=== PATIENT | female | born 1990 | race Caucasian/White ===

== ENCOUNTER 2021-02-25 08:38 | Inpatient (IN) | payer BC ==
[~2021-02-25] VITALS: Ht 154.9 cm; Wt 77.6 kg
[2021-02-25] MEDS ORDERED: LR 1,000 ML IV SCH ×2 (10:15→20:15)
[2021-02-25] MEDS ORDERED: DINOPROSTONE 10 MG SUPP VG ONE (10:15)
[2021-02-25] MEDS ORDERED: NALBUPHINE HCL 10 MG/ML AMP IM PRN (10:15)
[2021-02-25] MEDS ORDERED: OXYTOCIN/0.9 % SODIUM CHLORIDE 1,000 ML IV SCH (10:15)
[2021-02-25 10:39] LABS: BASOPHILS % (AUTO) 0.4 % (0.0-2.0); EOSINOPHILS # (AUTO) 0.1 K/uL (0.0-0.4); EOSINOPHILS % (AUTO) 0.6 % (0.0-4.0); HEMATOCRIT 39.1 % (36-48); HEMOGLOBIN 13.2 g/dL (12.0-16.0); LYMPHOCYTES # (AUTO) 1.6 K/uL (1.0-5.5); LYMPHOCYTES % (AUTO) 15.9 % (20.5-51.5); MEAN CORPUSCULAR HEMOGLOBIN 30 pg (27-31); MEAN CORPUSCULAR HGB CONC 34 % (32-36); MEAN CORPUSCULAR VOLUME 89 fL (79.0-98.0); MONOCYTES # (AUTO) 0.4 K/uL (0.0-1.0); MONOCYTES % (AUTO) 3.9 % (1.7-9.3); NEUTROPHILS % (AUTO) 79.2 % (40.0-70.0); PLATELET COUNT (AUTO) 171 K/uL (130-430); RED BLOOD CELL COUNT(AUTO) 4.41 MIL/uL (4.2-6.2); RED CELL DISTRIBUTION WIDTH 14.9 % (9.0-15.0); WHITE BLOOD COUNT (AUTO) 10.1 K/uL (4.8-10.8)
[2021-02-25] MEDS: NALBUPHINE HCL 10 MG/ML AMP IVP PRN ×2 (11:40→14:16)
[2021-02-25 13:33] VITALS: BP_SYST 115
[2021-02-25] MEDS ORDERED: TERBUTALINE SULFATE 1 MG/ML VIAL ONE (17:45)
[2021-02-25] MEDS ORDERED: NS IRRIG SOLN 1000 ML IR ONE (19:15)
[2021-02-25] MEDS ORDERED: MORPHINE SULFATE 10MG/10ML PF AMP EP ONE (19:15)
[2021-02-25] MEDS ORDERED: BUPIVACAINE /PF 0.75% 10 ML VIAL INJ ONE (19:15)
[2021-02-25] MEDS ORDERED: CEFAZOLIN 2 GM IVPB PREMIX 50 ML IV ONE ×3 (19:15→19:30)
[2021-02-25] MEDS ORDERED: LR 1,000 ML IV.SOLN IV ONE (19:15)
[2021-02-25] MEDS ORDERED: MORPHINE SULFATE 10MG/10ML PF AMP SP SCH (20:00)
[2021-02-25] MEDS ORDERED: fentaNYL CITRATE/PF 100 MCG/2 ML AMP IVP PRN ×2 (20:00)
[2021-02-25] MEDS ORDERED: NALBUPHINE HCL 10 MG/ML AMP IVP PRN (20:00)
[2021-02-25] MEDS ORDERED: DIPHENHYDRAMINE INJ 50 MG/ML VIAL IVP PRN (20:00)
[2021-02-25] MEDS ORDERED: ONDANSETRON HCL 4 MG/2 ML VIAL IVP PRN (20:00)
[2021-02-25] MEDS ORDERED: NALOXONE HCL 0.4 MG/ML AMP (NARCAN) IVP PRN ×3 (20:00→20:15)
[2021-02-25] MEDS ORDERED: KETOROLAC TROMETHAMINE 60 MG/2 ML VIAL IM PRN (20:00)
[2021-02-25 20:15] VITALS: BP_SYST 119
[2021-02-25] MEDS ORDERED: RHO(D) IMMUNE GLOBULIN/MALTOSE 1500 UNITS/1.3 ML (WINHRO) IM PRN (20:15)
[2021-02-25] MEDS ORDERED: MEASLES,MUMPS&RUBELLA VACC/PF 12500 UNIT/0.5 ML VIAL SUBQ PRN (20:15)
[2021-02-25] MEDS ORDERED: LANOLIN 7 GM OINT. TP PRN (20:15)
[2021-02-25] MEDS ORDERED: TEMAZEPAM 15 MG CAPSULE PO PRN (20:15)
[2021-02-25] MEDS ORDERED: BISACODYL 10 MG/SUPPOSITORY RC PRN (20:15)
[2021-02-25] MEDS ORDERED: ANUSOL 1 EA SUPP.RECT (PREPARATION H) RC PRN (20:15)
[2021-02-25] MEDS ORDERED: SENNOSIDES/DOCUSATE SODIUM 1 TAB TABLET(SENOKOT-S) PO PRN (20:15)
[2021-02-25] MEDS ORDERED: DIPH-TET-PERTUS Vaccine 0.5 ML VIAL (ADACEL) I.M. PRN (20:15)
[2021-02-26] MEDS ORDERED: CEFAZOLIN 1 GM IVPB PREMIX 50 ML IV SCH ×2 (01:30)
[2021-02-26] MEDS: CEFAZOLIN 1 GM IVPB PREMIX 50 ML IV SCH ×2 (01:31→12:07)
[2021-02-26] MEDS: OXYTOCIN/0.9 % SODIUM CHLORIDE 1,000 ML IV SCH ×2 (01:32→08:00)
[2021-02-26 08:22] LABS: BASOPHILS % (AUTO) 0.4 % (0.0-2.0); EOSINOPHILS % (AUTO) 0.3 % (0.0-4.0); HEMATOCRIT 31.5 % (36-48); HEMOGLOBIN 10.7 g/dL (12.0-16.0); LYMPHOCYTES # (AUTO) 1.8 K/uL (1.0-5.5); LYMPHOCYTES % (AUTO) 16.8 % (20.5-51.5); MEAN CORPUSCULAR HEMOGLOBIN 30 pg (27-31); MEAN CORPUSCULAR HGB CONC 34 % (32-36); MEAN CORPUSCULAR VOLUME 90 fL (79.0-98.0); MONOCYTES # (AUTO) 0.4 K/uL (0.0-1.0); MONOCYTES % (AUTO) 4.1 % (1.7-9.3); NEUTROPHILS # (AUTO) 8.4 K/uL (1.8-7.7); NEUTROPHILS % (AUTO) 78.4 % (40.0-70.0); PLATELET COUNT (AUTO) 152 K/uL (130-430); RED BLOOD CELL COUNT(AUTO) 3.52 MIL/uL (4.2-6.2); RED CELL DISTRIBUTION WIDTH 14.6 % (9.0-15.0); WHITE BLOOD COUNT (AUTO) 10.7 K/uL (4.8-10.8)
[2021-02-26] MEDS: SIMETHICONE 80 MG TAB.CHEW PO PRN ×2 (09:51→17:06)
[2021-02-26] MEDS: DOCUSATE SODIUM 100 MG CAPSULE PO PRN (09:52)
[2021-02-26] MEDS: KETOROLAC TROMETHAMINE 30 MG VIAL IVP SCH ×2 (12:00→12:07)
[2021-02-26] MEDS ORDERED: DINOPROSTONE 10 MG SUPP VG ONE (14:24)
[2021-02-26] MEDS: OXYCODONE/ACETAMINOPHEN 5-325 TABLET PO PRN (17:06)
[2021-02-27] MEDS: SIMETHICONE 80 MG TAB.CHEW PO PRN ×3 (00:06→20:40)
[2021-02-27] MEDS: KETOROLAC TROMETHAMINE 30 MG VIAL IVP SCH (00:06)
[2021-02-27] MEDS: OXYCODONE/ACETAMINOPHEN 5-325 TABLET PO PRN ×2 (03:38→14:36)
[2021-02-27] MEDS: IBUPROFEN 600 MG TABLET PO SCH ×4 (06:13→23:39)
[2021-02-27] MEDS: DOCUSATE SODIUM 100 MG CAPSULE PO PRN ×2 (09:10→20:40)
[2021-02-27] MEDS: OXYCODONE/ACETAMINOPHEN *10*mg/325 mg TABLET PO PRN ×2 (09:11→20:40)
[2021-02-28] MEDS: OXYCODONE/ACETAMINOPHEN 5-325 TABLET PO PRN (00:34)
[2021-02-28] MEDS: IBUPROFEN 600 MG TABLET PO SCH ×2 (05:36→12:12)
[2021-02-28] MEDS: DOCUSATE SODIUM 100 MG CAPSULE PO PRN (08:56)
[2021-02-28] MEDS: HYDROcodone/ACETAMIN 5-325 MG TAB (NORCO/ VICODIN) PO PRN ×2 (08:57→16:30)
[2021-02-28 20:06] LABS: FTA-Ab (T PALLIDUM) Non Reactive (Non Reactive)
== END 2021-02-28 17:12 | disposition home or self-care (01) | DRG 788 ==
LOC: SPU 08:38
PROVIDERS: ADMIT Specialist; ATTEND Specialist
PROC: 10D00Z1 Extraction of Products of Conception, Low, Open Approach (ICD-10-PCS; principal; 2021-02-25 19:15)
DX: O77.0 Labor and delivery complicated by meconium in amniotic fluid (principal); O76 Abnormality in fetal heart rate and rhythm complicating labor and delivery; O48.0 Post-term pregnancy; Z20.822 Contact with and (suspected) exposure to COVID-19; O62.2 Other uterine inertia; Z37.0 Single live birth; Z86.32 Personal history of gestational diabetes; Z3A.42 42 weeks gestation of pregnancy
CPT/HCPCS: 36415; 85025; 86592; 86780; 86886; 86900; 86901; J0690; J1885; J2274; J2300; J2590; J3105; J3490; J7120

== ENCOUNTER 2021-04-30 10:43 | Emergency (ER) | payer BC ==
[~2021-04-30] VITALS: Ht 154.9 cm; Wt 64.4 kg
[2021-04-30 10:43] VITALS: BP_SYST 118
--- NOTE | 2021-04-30 10:43 | NUR ---
BROUGHT BACK TO BED #7 VIA WHEELCHAIR, PLACED IN BED #7, TRIAGED, REPORT GIVEN TO DAY
--- NOTE | 2021-04-30 10:45 | NUR ---
PT BIB FROM HOME, STATES SHE DROPPED HER PHONE ONTO A GLASS JAR IN THE BATHROOM. THE GLASS THEN CUT THE TOP OF HER RIGHT FOOT. LAC IS NOT ACTIVELY BLEEDING UPON ARRIVAL, CLEAN EDGES. PT REPORTS 6/10 PAIN BUT STATES SHE DOES NOT WANT ANY MEDICATION FOR THE PAIN. PT IS AAOX4, V/S STABLE UPON ARRIVAL
--- NOTE | 2021-04-30 10:50 | NUR ---
ER DR. PIERCE AT THE BEDSIDE EXAMINING PT
[2021-04-30] MEDS ORDERED: DIPH-TET-PERTUS Vaccine 0.5 ML VIAL (ADACEL) I.M. ONE (11:00)
[2021-04-30] MEDS ORDERED: LIDOCAINE 1%, 20 ML MDV 20 ML ONE (11:05)
--- NOTE | 2021-04-30 11:05 | NUR ---
PT REPORTS WANTING PAIN MEDICATION, DR. PIERCE MADE AWARE
[2021-04-30] MEDS ORDERED: ACETAMINOPHEN 500 MG TABLET PO ONE (11:15)
--- NOTE | 2021-04-30 11:22 | NUR ---
PORTABLE X-RAY AT THE BEDSIDE
[2021-04-30] MEDS ORDERED: BACITRACIN 1 GM OINT TP ONE ×3 (12:39→12:45)
[2021-04-30 13:06] VITALS: BP_SYST 118
--- NOTE | 2021-04-30 13:06 | NUR ---
Patient given written and verbal discharge instructions and verbalizes understanding. ER MD discussed with patient the results and treatment provided. Patient in stable condition. ID arm band removed. NO RX given. Patient educated on pain management and to follow up with PMD. Pain Scale 0/10. Opportunity for questions provided and answered. Medication side effect fact sheet provided.
== END 2021-04-30 13:06 | disposition home or self-care (01) ==
LOC: SED 10:43
DX: S91.311A Laceration without foreign body, right foot, initial encounter (principal); S90.31XA Contusion of right foot, initial encounter; W25.XXXA Contact with sharp glass, initial encounter; Y93.89 Activity, other specified; Y92.89 Other specified places as the place of occurrence of the external cause; Y99.8 Other external cause status
CPT/HCPCS: 73630; 90471; 90715; 99283; J2001

== ENCOUNTER 2021-05-02 12:20 | Emergency (ER) | payer BC ==
[~2021-05-02] VITALS: Ht 154.9 cm; Wt 64.0 kg
[2021-05-02 12:32] VITALS: BP_SYST 121
[2021-05-02 13:50] VITALS: BP_SYST 121
== END 2021-05-02 13:46 | disposition home or self-care (01) ==
LOC: SED 12:20
DX: S91.311D Laceration without foreign body, right foot, subsequent encounter (principal); Z48.00 Encounter for change or removal of nonsurgical wound dressing; W45.8XXD Other foreign body or object entering through skin, subsequent encounter
CPT/HCPCS: 99281

== ENCOUNTER 2021-05-07 12:37 | Emergency (ER) | payer BC ==
[~2021-05-07] VITALS: Ht 154.9 cm; Wt 63.5 kg
[2021-05-07 13:12] VITALS: BP_SYST 119
[2021-05-07 13:43] VITALS: BP_SYST 119
== END 2021-05-07 13:43 | disposition home or self-care (01) ==
LOC: SED 12:37
DX: S91.311D Laceration without foreign body, right foot, subsequent encounter (principal); Z48.00 Encounter for change or removal of nonsurgical wound dressing; W45.8XXD Other foreign body or object entering through skin, subsequent encounter
CPT/HCPCS: 99281

== ENCOUNTER 2021-05-10 14:57 | Emergency (ER) | payer BC ==
[~2021-05-10] VITALS: Ht 154.9 cm; Wt 63.5 kg
--- NOTE | 2021-05-10 15:30 | NUR ---
Patient to ER bed H1 to gown for evaluation. Side rails up. Report given to TIGIST PATTON.
[2021-05-10 15:32] VITALS: BP_SYST 110
--- NOTE | 2021-05-10 15:40 | NUR ---
ER at bedside examining patient.
--- NOTE | 2021-05-10 15:55 | NUR ---
Pt. came in for suture removal of sutures on right foot
--- NOTE | 2021-05-10 15:55 | NUR ---
6 SUTURES REMOVED AND STERI STRIPS APPLIED PT. TOLERATED WELL
--- NOTE | 2021-05-10 16:00 | NUR ---
Patient given written and verbal discharge instructions and verbalizes understanding. Dr. Vargas discussed with patient the results and treatment provided. Patient in stable condition. ID arm band removed. Patient educated on pain management and to follow up with PMD. Pain Scale 0. Opportunity for questions provided and answered. Medication side effect fact sheet provided.
[2021-05-10 16:13] VITALS: BP_SYST 110
== END 2021-05-10 16:13 | disposition home or self-care (01) ==
LOC: SED 14:57
DX: S91.311D Laceration without foreign body, right foot, subsequent encounter (principal); Z48.02 Encounter for removal of sutures; W45.8XXD Other foreign body or object entering through skin, subsequent encounter
CPT/HCPCS: 99282

== ENCOUNTER 2023-03-20 00:05 | Observation (INO) | payer BC, OTHER ==
[~2023-03-20] VITALS: Ht 157.5 cm; Wt 80.7 kg
[2023-03-20] MEDS ORDERED: LR 1,000 ML IV SCH (01:15)
[2023-03-20] MEDS ORDERED: CEFAZOLIN 2 GM IVPB PREMIX 50 ML IV ONE (01:15)
== END 2023-03-20 02:25 | disposition left against medical advice (07) ==
LOC: SPU 00:05 → INTOOBSV 00:50 → OBSVTOIN 00:50
PROVIDERS: ADMIT Specialist; ATTEND Specialist
DX: O62.9 Abnormality of forces of labor, unspecified (principal); Z3A.00 Weeks of gestation of pregnancy not specified; Z53.21 Procedure and treatment not carried out due to patient leaving prior to being seen by health care provider
CPT/HCPCS: J7120; G0378

== ENCOUNTER 2023-03-20 12:12 | Inpatient (IN) | payer BC, OTHER ==
[~2023-03-20] VITALS: Ht 154.9 cm; Wt 80.7 kg
[2023-03-20 12:40] VITALS: BP_SYST 131
[2023-03-20] MEDS ORDERED: CEFAZOLIN 2 GM IVPB PREMIX 50 ML IV ONE (12:45)
[2023-03-20] MEDS ORDERED: LR 1,000 ML IV ONE (12:45)
[2023-03-20 12:50] VITALS: BP_SYST 131
[2023-03-20 13:16] LABS: BILIRUBIN,URINE NEGATIVE (NEGATIVE); BLOOD, URINE NEGATIVE (NEGATIVE); COLOR,URINE YELLOW (YELLOW); GLUCOSE,URINE NEGATIVE (NEGATIVE); KETONES,URINE NEGATIVE (NEGATIVE); LEUKOCYTE ESTERASE ,URINE NEGATIVE (NEGATIVE); NITRITE, URINE NEGATIVE (NEGATIVE); PH,URINE 6.5 (5.0-8.0); PROTEIN URINE NEGATIVE (NEGATIVE)
[2023-03-20 13:20] LABS: EOSINOPHILS % (AUTO) 0.1 % (0.0-4.0); MONOCYTES % (AUTO) 2.3 % (1.7-9.3); RED CELL DISTRIBUTION WIDTH 14.1 % (9.0-15.0)
[2023-03-20 13:25] LABS: CLARITY/URINE SLIGHTLY HAZY (CLEAR)
[2023-03-20 13:58] LABS: BASOPHILS % (AUTO) 0.2 % (0.0-2.0); HEMATOCRIT 38.4 % (36-48); HEMOGLOBIN 13.1 g/dL (12.0-16.0); LYMPHOCYTES # (AUTO) 0.9 K/uL (1.0-5.5); LYMPHOCYTES % (AUTO) 9.7 % (20.5-51.5); MEAN CORPUSCULAR HEMOGLOBIN 30 pg (27-31); MEAN CORPUSCULAR HGB CONC 34 % (32-36); MEAN CORPUSCULAR VOLUME 87 fL (79.0-98.0); MONOCYTES # (AUTO) 0.2 K/uL (0.0-1.0); NEUTROPHILS % (AUTO) 87.7 % (40.0-70.0); PLATELET COUNT (AUTO) 212 K/uL (130-430); RED BLOOD CELL COUNT(AUTO) 4.42 MIL/uL (4.2-6.2); WHITE BLOOD COUNT (AUTO) 9.2 K/uL (4.8-10.8)
[2023-03-20] MEDS ORDERED: ONDANSETRON HCL 4 MG/2 ML VIAL ONE (18:21)
[2023-03-20] MEDS ORDERED: OXYTOCIN 10 UNIT/ML VIAL ONE (18:21)
[2023-03-20] MEDS ORDERED: MORPHINE SULFATE 10MG/10ML PF AMP ONE (18:21)
[2023-03-20] MEDS ORDERED: LR 1,000 ML IV.SOLN IV ONE (18:21)
[2023-03-20] MEDS ORDERED: METOCLOPRAMIDE HCL 10 MG/2 ML VIAL ONE (18:21)
[2023-03-20] MEDS ORDERED: WATER FOR IRRIGATION,STERILE 1,000 ML IRRIG.SOLN IR ONE (18:21)
[2023-03-20] MEDS ORDERED: NS IRRIG SOLN 1000 ML IR ONE (18:21)
[2023-03-20] MEDS ORDERED: TRIAMCINOLONE ACETONIDE 40 MG/ML ONE (18:21)
[2023-03-20] MEDS ORDERED: HYDROcodone/ACETAMIN 5-325 MG TAB (NORCO/ VICODIN) PO PRN (19:30)
[2023-03-20] MEDS ORDERED: TEMAZEPAM 15 MG CAPSULE PO PRN (19:30)
[2023-03-20] MEDS ORDERED: OXYCODONE/ACETAMINOPHEN *10*mg/325 mg TABLET PO PRN (19:30)
[2023-03-20] MEDS ORDERED: MEASLES,MUMPS&RUBELLA VACC/PF 12500 UNIT/0.5 ML VIAL SUBQ PRN (19:30)
[2023-03-20] MEDS ORDERED: NALOXONE HCL 0.4 MG/ML AMP (NARCAN) IVP PRN ×2 (19:30→19:45)
[2023-03-20] MEDS ORDERED: LANOLIN 7 GM OINT. TP PRN (19:30)
[2023-03-20] MEDS ORDERED: DIPHTH,PERTUSS(ACELL),TET VAC 0.5 ML VIAL (Tdap) I.M. PRN (19:30)
[2023-03-20] MEDS ORDERED: ANUSOL 1 EA SUPP.RECT (PREPARATION H) RC PRN (19:30)
[2023-03-20] MEDS ORDERED: RHO(D) IMMUNE GLOBULIN/MALTOSE 1500 UNITS/1.3 ML (WINHRO) IM PRN (19:30)
[2023-03-20] MEDS ORDERED: KETOROLAC TROMETHAMINE 60 MG/2 ML VIAL IM PRN (19:45)
[2023-03-20] MEDS ORDERED: MORPHINE SULFATE 10MG/10ML PF AMP SP SCH (19:45)
[2023-03-20] MEDS ORDERED: DIPHENHYDRAMINE INJ 50 MG/ML VIAL IM PRN (19:45)
[2023-03-20] MEDS ORDERED: ONDANSETRON HCL 4 MG/2 ML VIAL IVP PRN (19:45)
[2023-03-20] MEDS ORDERED: LR 1,000 ML IV SCH (20:00)
[2023-03-20 20:17] VITALS: BP_SYST 114
[2023-03-20] MEDS ORDERED: DIPHENHYDRAMINE INJ 50 MG/ML VIAL ONE (20:46)
[2023-03-20] MEDS: SENNOSIDES/DOCUSATE SODIUM 1 TAB TABLET(SENOKOT-S) PO SCH (21:00)
[2023-03-20] MEDS: DOCUSATE SODIUM 100 MG CAPSULE PO SCH (21:00)
[2023-03-20] MEDS: OXYTOCIN/0.9 % SODIUM CHLORIDE 1,000 ML IV SCH (21:24)
[2023-03-20] MEDS: SIMETHICONE 80 MG TAB.CHEW PO SCH (22:58)
[2023-03-21] MEDS: CEFAZOLIN 1 GM IVPB PREMIX 50 ML IV SCH ×3 (00:03→12:41)
[2023-03-21] MEDS: SIMETHICONE 80 MG TAB.CHEW PO SCH ×5 (03:03→18:13)
[2023-03-21] MEDS: KETOROLAC TROMETHAMINE 30 MG VIAL IVP SCH ×3 (06:02→18:13)
[2023-03-21] MEDS: OXYTOCIN/0.9 % SODIUM CHLORIDE 1,000 ML IV SCH ×2 (06:10→15:50)
[2023-03-21 07:23] LABS: BASOPHILS % (AUTO) 0.1 % (0.0-2.0); HEMATOCRIT 37.2 % (36-48); HEMOGLOBIN 12.6 g/dL (12.0-16.0); LYMPHOCYTES # (AUTO) 1.1 K/uL (1.0-5.5); LYMPHOCYTES % (AUTO) 10.8 % (20.5-51.5); MEAN CORPUSCULAR HEMOGLOBIN 30 pg (27-31); MEAN CORPUSCULAR HGB CONC 34 % (32-36); MEAN CORPUSCULAR VOLUME 88 fL (79.0-98.0); MONOCYTES # (AUTO) 0.4 K/uL (0.0-1.0); NEUTROPHILS # (AUTO) 8.9 K/uL (1.8-7.7); NEUTROPHILS % (AUTO) 85.1 % (40.0-70.0); PLATELET COUNT (AUTO) 208 K/uL (130-430); RED BLOOD CELL COUNT(AUTO) 4.22 MIL/uL (4.2-6.2); RED CELL DISTRIBUTION WIDTH 14.2 % (9.0-15.0); WHITE BLOOD COUNT (AUTO) 10.5 K/uL (4.8-10.8)
[2023-03-21] MEDS: DOCUSATE SODIUM 100 MG CAPSULE PO SCH ×2 (08:32→22:36)
[2023-03-21] MEDS ORDERED: BISACODYL 10 MG/SUPPOSITORY RC SCH (21:00)
[2023-03-21] MEDS: SENNOSIDES/DOCUSATE SODIUM 1 TAB TABLET(SENOKOT-S) PO SCH (22:36)
[2023-03-21] MEDS: OXYCODONE/ACETAMINOPHEN 5-325 TABLET PO PRN (22:40)
[2023-03-22] MEDS: SIMETHICONE 80 MG TAB.CHEW PO SCH ×2 (01:27→09:14)
[2023-03-22] MEDS: IBUPROFEN 600 MG TABLET PO SCH ×3 (01:27→18:14)
[2023-03-22] MEDS: OXYCODONE/ACETAMINOPHEN 5-325 TABLET PO PRN ×3 (05:26→17:06)
[2023-03-22] MEDS: DOCUSATE SODIUM 100 MG CAPSULE PO SCH (09:13)
== END 2023-03-22 18:30 | disposition home or self-care (01) | DRG 785 ==
LOC: SPU 12:12
PROVIDERS: ADMIT Specialist; ATTEND Specialist
PROC: 0UB70ZZ Excision of Bilateral Fallopian Tubes, Open Approach (ICD-10-PCS; 2023-03-20)
PROC: 10D00Z1 Extraction of Products of Conception, Low, Open Approach (ICD-10-PCS; principal; 2023-03-20 18:21)
DX: O34.211 Maternal care for low transverse scar from previous cesarean delivery (principal); O75.89 Other specified complications of labor and delivery; M54.9 Dorsalgia, unspecified; Z30.2 Encounter for sterilization; Z3A.38 38 weeks gestation of pregnancy; Z37.0 Single live birth
CPT/HCPCS: 36415; 81003; 85025; 86592; 86886; 86900; 86901; 88302; 94760; J0690; J1200; J1885; J2274; J2405; J2590; J2765; J7030; J7042; J7120